=== PATIENT | female | born 1985 | race Caucasian/White ===

== ENCOUNTER 2016-08-12 10:36 | Day surgery (SDC) | payer OTHER ==
--- NOTE | 2016-08-12 08:29 | HP ---
DATE OF SURGERY: 08/12/2016 HISTORY OF PRESENT ILLNESS: The patient is a 20 year-old has been working out the last two months and developed a bulge in mid epigastrium. There does not appear to be any pain prior to her supraumbilical incision from repair of her old hernia site that was done at the time of cholecystectomy. She had CT scan of the abdomen and pelvis at that time had shown just a seroma in that area but no hernia. PAST MEDICAL HISTORY: He denies any chronic illnesses. PAST SURGICAL HISTORY: Tubal ligation, ablation, hernia repair with a small piece of mesh as well as cholecystectomy in the past. MEDICATIONS: vitamins and Prilosec in the past. ALLERGIES: NKDA. FAMILY HISTORY: Negative. SOCIAL HISTORY: No smoking or alcohol abuse. REVIEW OF SYSTEMS: Twelve systems reviewed per admission assessment. No chest pain or palpitations other systems negative or noncontributory as above and per preadmission questionnaire. PHYSICAL EXAMINATION: GENERAL: No acute distress. HEENT: Sclerae nonicteric. NECK: No JVD. CHEST: Equal excursion, nonlabored breathing. CVS: Regular rate and rhythm. ABDOMEN: Soft. No peritoneal signs. Epigastric nodule that seems to be consistent with epigastric incarcerated ventral hernia not at her prior incision site but in between her epigastric incision for cholecystectomy as well as the umbilical area incision for other hernia repair. EXTREMITIES: No significant edema. NEURO: Alert, oriented, moving extremities symmetrically. No gross motor deficits noted. IMPRESSION: Question of epigastric incarcerated ventral hernia site increasingly symptomatic. I feel she will be benefit from repair, to rule out any other etiology of her prior hernia repair done by the umbilical area as she had a prior ventral hernia repair, I feel she would benefit from laparoscopy for further evaluation of this area and possible aspiration of small seroma in this area as well as probable open repair of epigastric ventral hernia with mesh depending operative findings. Risks and benefits explained in detail including but not limited to bleeding or infection, risk of trocar injury or hernia. Small risk of bowel, bladder or blood vessel injury, small risk of adhesions or scar formation or obstruction, risk of mesh fracture or failure possibly creating issues of bowel possibly requiring open procedure, overall risk of hernia recurrence, general risk of anesthesia, deep venous thrombosis, pulmonary embolism, pneumonia, perioperative aches, bloating, constipation, and/or loose stools possibly chronic in nature. She understands and agrees to the planned procedure and will proceed with laparoscopic assisted probable open repair of incarcerated epigastric ventral hernia with mesh as an outpatient.
[~2016-08-12 10:36] MED LIST: BRIDION 200MG/2ML IV ONE; DILAUDID 2 MG INJECTION IV ONE; DIPRIVAN 200 MG/20 ML IV ONE; Decadron 4 MG INJ IV ONE; Lactated Ringers 1,000 ML IV ONE; Quelicin Fliptop 200 MG/10 ML IJ ONE; ROBINUL IV ONE; SUBLIMAZE 100 MCG/2 ML IV ONE; Sensorcaine 0.25% 10 ML ONE; TORAdol 30 mg Injection IJ ONE; Zemuron 100 MG/10 ML IJ ONE; Zofran 4 MG/2 ML VIAL IV ONE
[2016-08-12] MEDS ORDERED: CEFAZOLIN 2 GM-D5W BAG** 50 ML IV ONE ×2 (10:53→10:54)
[2016-08-12] MEDS ORDERED: Lactated Ringers 1,000 ML IV ONE ×2 (10:54→14:35)
[2016-08-12] MEDS ORDERED: Lactated Ringers 1,000 ML IV SCH (11:00)
[2016-08-12] MEDS ORDERED: DILAUDID 2 MG INJECTION ONE (14:35)
[2016-08-12 16:06] VITALS: BP 103/58; PULSE 72; O2SAT 94
--- NOTE | 2016-08-12 16:28 | OP ---
SURGERY DATE: 08/12/16 SURGERY TIME: 1305 PREOPERATIVE DIAGNOSIS: 1. INCARCERATED EPIGASTRIC VENTRAL SEPARATE SITE FROM PRIOR OLD UMBILICAL AREA VENTRAL HERNIA REPAIR. POSTOPERATIVE DIAGNOSIS: 1. INCARCERATED EPIGASTRIC VENTRAL SEPARATE SITE FROM PRIOR OLD UMBILICAL AREA VENTRAL HERNIA REPAIR WITH SECOND MORE SUPERIOR INCARCERATED EPIGASTRIC VENTRAL HERNIA (2 SEPARATE INCARCERATED EPIGASTRIC VENTRAL HERNIAS SEPARATE FROM PREVIOUS LOWER UMBILICAL AREA VENTRAL HERNIA REPAIR WITH MESH). PROCEDURE: 1. Open repair of incarcerated epigastric ventral hernias X 2 with mesh repaired in block as one hernia with laparoscopic assistance. SURGEON: Dr. Alexis Samuels. JOURNEYMAN LINEMAN: Geovanny Grove MS-III. ANESTHESIA: General. ESTIMATED BLOOD LOSS: Minimal. INDICATIONS: As noted above. Risks and benefits explained in detail, but not limited to. Consent was obtained. DESCRIPTION OF PROCEDURE AND FINDINGS: The patient was taken to the OR. General anesthesia was induced. Abdomen was prepped and draped in the usual sterile fashion. After official time-out, no disagreement in planned procedure. Transverse incision made infraumbilical. A small little stab wound. Fascia was pulled upward with the towel clips. Veress needle inserted. However, there was not an easy drop test in this area. It was felt that some scar tissue from the prior hernia repair. Therefore, it was elected to go more superiorly where the palpable hernia was noted in the epigastrium a few cm above the old hernia repair. Vertical incision as made with the towel clips pulling the fascia upward. Veress needle inserted. Tested with saline. Pneumoperitoneum accomplished from an opening pressure of 0-15. 5 mm bladeless port and camera were inserted in the left mid abdomen without difficulty followed by left lower quadrant 5 mm ports were placed. There was no evidence of any intraabdominal injury secondary to trocar insertion. The patient was evidenced to have an incarcerated hernia superior to the old repair site. The old umbilical area hernia repair site did appear to be fine. No evidence of recurrence. There was just one small edge of the mesh that was just slightly crinkled downward, but it was well peritonealized not causing any adhesions or any issues. Ligature was used to open the preperitoneal space and the falciform up to the level. It was then noted the patient had 2 separate sites of incarcerated epigastric ventral hernias superior to the old repair site. Small Prolene was placed through the old umbilical mesh to place it in a more perfect position, although again, there was no recurrence at this site. At this point, it was felt it would be best to go ahead and dissect down circumferentially around this hernia sac that had some seroma fluid in it tracking back to a smaller hernia in the epigastrium. It was incarcerated with preperitoneal fat and this fluid and hernia sac. This was carefully isolated away from the surrounding tissue and the incarcerated fat was carefully ligated with Vicryl tie and hernia sac passed off. The other area more superior was a little bit larger hernia. This was carefully opened. It was felt would benefit from mesh repair. 4.3 Ventralex was carefully inserted underneath. Straps pulled upward. Secured circumferentially a cm apart around the edges with 0 Prolene. The attenuated tissue over the top was closed with 0 Vicryl. A 0 Vicryl was also used to close the 2nd small hernia that was in between the largest hernia and the old umbilical repair site. This was closed with the edge of the mesh as well as another 0 PDS fixing it in block for these 2 hernias. Good repair was noted inside the abdomen. Again, repair had been accomplished in open fashion. The Sorba[employer] tacker was tacking part of the falciform peritoneum over the top of the mesh isolating it away from the tissue. Pneumoperitoneum decompressed. Good hemostasis noted. Wound was irrigated out. 0.25% Marcaine local injected along each skin incision. Ports removed. Subq closed with 3-0 Vicryl. Skin closed with 4-0 Vicryl. Steri-strips and sterile dressing applied. Patient tolerated the procedure well. There were no immediate complications. Sterile dressing was applied as well as abdominal binder. Patient tolerated the procedure well. Findings discussed with the family out in the waiting area.
== END 2016-08-12 16:20 | disposition home or self-care (01) ==
LOC: SDC 10:36
PROVIDERS: ATTEND Surgery
PROC: 0WUF0JZ Supplement Abdominal Wall with Synthetic Substitute, Open Approach (ICD-10-PCS; principal; 2016-08-12)
DX: K43.7 Other and unspecified ventral hernia with gangrene (principal)
CPT/HCPCS: 00752; 36415; 84703; 88302; C1781; J0330; J0690; J1100; J1170; J1885; J2405; J2704; J3010; L0625

== ENCOUNTER 2017-10-06 08:28 | Day surgery (SDC) | payer OTHER ==
--- NOTE | 2017-10-06 08:10 | HP ---
DATE OF SURGERY: 10/06/2017 HISTORY OF PRESENT ILLNESS: The patient is a 32 year-old who had some abdominal aches and pains, increased reflux. No evidence of abdominal wall hernia recurrence on CT scan. She is in need of upper and lower endoscopy to evaluate for gastritis, ulcer, colitis, inflammatory bowel disease or other etiology regarding abdominal pain. PAST MEDICAL HISTORY: Reflux. PAST SURGICAL HISTORY: Hernia repair in the past. Right ovary removed in the past. Tubal ligation and cholecystectomy in the past. MEDICATIONS: vitamins, probiotic, Prilosec, control pill, MiraLAX. ALLERGIES: NKDA. FAMILY HISTORY: Negative in regards to this problem. SOCIAL HISTORY: No alcohol abuse. REVIEW OF SYSTEMS: Twelve systems reviewed. No chest pain or palpitations other systems negative or noncontributory as above and per preadmission questionnaire. PHYSICAL EXAMINATION: GENERAL: No acute distress. HEENT: Sclerae nonicteric. NECK: No JVD. CHEST: Equal excursion, nonlabored breathing. CVS: Regular rate and rhythm. ABDOMEN: Soft. No peritoneal signs. Vague abdominal tenderness. No palpable hernia recurrence. EXTREMITIES: No significant edema. NEURO: Alert, oriented, moving extremities symmetrically. No gross motor deficits noted. LAB DATA AND TESTS: CT scan did not show any obvious hernia recurrence. IMPRESSION: Abdominal pain increased reflux. 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 She is in need of follow up upper endoscopy and colonoscopy to evaluate for gastritis, esophagitis, inflammatory bowel disease, colitis or other etiology for her aches and pains. Risks and benefits explained in detail including but not limited to bleeding or infection, small risk of bowel injury or perforation possibly requiring open procedure, risk of missed or nondiagnosis or incomplete exam possibly requiring barium enema, other studies or procedures. She understands and agrees to the planned procedure and will proceed with outpatient EGD and colonoscopy for further evaluation.
[~2017-10-06 08:28] MED LIST changes: -BRIDION 200MG/2ML IV ONE; -DILAUDID 2 MG INJECTION IV ONE; -DIPRIVAN 200 MG/20 ML IV ONE; -Decadron 4 MG INJ IV ONE; -Lactated Ringers 1,000 ML IV ONE; +Lactated Ringers 1,000 ML IV SCH; -Quelicin Fliptop 200 MG/10 ML IJ ONE; -ROBINUL IV ONE; -SUBLIMAZE 100 MCG/2 ML IV ONE; -Sensorcaine 0.25% 10 ML ONE; -TORAdol 30 mg Injection IJ ONE; -Zemuron 100 MG/10 ML IJ ONE; -Zofran 4 MG/2 ML VIAL IV ONE
[2017-10-06] MEDS ORDERED: DIPRIVAN 200 MG/20 ML IV ONE (08:29)
[2017-10-06] MEDS ORDERED: Lactated Ringers 1,000 ML IV ONE (08:55)
[2017-10-06 11:52] VITALS: O2SAT 100
[2017-10-06 13:02] VITALS: BP 122/51; PULSE 70
--- NOTE | 2017-10-06 15:01 | OP ---
SURGERY DATE/TIME: 10/06/2017 1026 PREOPERATIVE DIAGNOSES: 1) Abdominal pain unclear etiology. 2) History of reflux. 3) History of Monroe's. Need for follow up upper and lower endoscopy. POSTOPERATIVE DIAGNOSES: 1) Minimal gastritis. 2) Slight small hiatal hernia. 3) Question short segment of Monroe's esophagus. 4) Poor bowel prep limiting colon exam. 5) Small internal and external hemorrhoids. 6) Small raised lesions sigmoid and rectum versus hyperplastic lesion versus early polyps. 7) Ulcer terminal ileum. PROCEDURES: 1) EGD with cold biopsy of small bowel to evaluate for celiac sprue. 2) Cold biopsy of the antrum to evaluate for Helicobacter pylori. 3) Cold biopsy distal esophagus to evaluate for Monroe's esophagus. 4) Colonoscopy terminal ileum. 5) Retrograde ileostomy. 6) Cold biopsy margin of ileal ulcer to evaluate for inflammatory bowel disease. 7) Random cold biopsy of colon to evaluate for microscopic colitis. 8) Hot biopsy and removal of small raised lesion versus hyperplastic lesion versus early polyps sigmoid colon and rectum. SURGEON: Dr. Alexis Samuels. CAPACITY PLANNING MANAGER: Chanel Galvez, Medical Student III. ANESTHESIA: MAC. ESTIMATED BLOOD LOSS: Minimal. INDICATIONS: As noted above. Risks and benefits explained in detail and not limited to and consent obtained. DESCRIPTION OF PROCEDURE AND FINDINGS: The patient is taken to the operating room. MAC anesthesia introduced. After official time out and no disagreement with planned procedure, a bite block positioned. Video gastroscope passed down the esophagus through the patent pylorus to the junction of the second and third portion of the duodenum. Given her symptom complaints of vague aches and pains, cold biopsy taken to evaluate for celiac sprue. Good hemostasis noted. There were no signs of any obvious ulcers. The scope pulled back into the stomach. There was some minimal gastritis given her symptom complaints. It was felt she warranted biopsy for Helicobacter pylori for AXEL-test. On retroflex there are no signs of any ulcers or other mucosal lesions. On retroflex there may have been just a slight hiatal hernia or weakness of the hiatus. The scope is straightened. The gastroesophageal junction about 35 cm. Short segment about 0.5 cm, less than 1 cm seen on pink tissue. Question Monroe's esophagus. Cold biopsies were taken. Unfortunately the staff placed both specimens from the stomach and esophagus in the same container. The scope had already been withdrawn. Otherwise the path is pending to evaluate for Monroe's. The remainder of the esophagus is grossly unremarkable. No signs of any obvious masses or ulcers. The scope is withdrawn. The patient tolerated this part of the procedure well. Attention is then turned to the colonoscopy. Digital rectal exam did not reveal any rectal masses. She did have some small internal and external hemorrhoids. Video colonoscope inserted and passed up through the poorly prepped colon. It had a large amount of liquidy semi-solid stool limiting the exam for small lesions. It is suctioned and irrigated as well as possible but did limit the exam. The scope is able to be passed around transverse colon with positioning on her back and external pressure by a couple of staff members, the scope was able to be passed to the cecum up into the terminal ileum. There was an ulceration noted in the terminal ileum. A cold biopsy is taken with margin to evaluate for inflammatory bowel disease. There did not appear to be any monica cobble-stoning or ulcer in the terminal ileum. Cold biopsy is taken of the margin to evaluate for inflammatory bowel disease otherwise good hemostasis noted. Otherwise the scope was then carefully withdrawn. Again the prep was somewhat poor, liquidy, semi-solid stool throughout the colon on exam suction and irrigating as well as possible. Random cold biopsies taken throughout the colon to evaluate for microscopic colitis. There are no signs of any gross macroscopic colitis. There are no signs of any large polyps or masses throughout the colon. Back to the sigmoid colon very small 2 mm sized raised lesion versus hyperplastic lesion versus hyperplastic polyp removed with hot biopsy forceps with brief bursts of cautery. There was an additional four or five of these small raised lesions in the rectum they were also removed with hot biopsy forceps. There are no signs of any large polyps, masses or obstructing lesions. The scope is withdrawn. The patient tolerated the procedure well. Await biopsy results and also ordered given her change in ileum also ordered serum IBD-assay test for further information and a serum Helicobacter pylori test for gastric biopsy. The patient tolerated the procedure well. There were no immediate complications. Given her symptom complaints await IBD-assay test, serum Helicobacter pylori and biopsy results. There was no family available to discuss the findings with. I will her back in the office next week to go over the results.
[2017-10-09 13:50] LABS: H.Pylori Stool Ag. EIA Negative (Negative); Source H. Pylori Ag. Feces
== END 2017-10-06 12:30 | disposition home or self-care (01) ==
LOC: SDC 08:28
PROVIDERS: ATTEND Surgery
DX: K29.70 Gastritis, unspecified, without bleeding (principal); K44.9 Diaphragmatic hernia without obstruction or gangrene; K22.70 Barrett's esophagus without dysplasia; K64.4 Residual hemorrhoidal skin tags; K64.8 Other hemorrhoids; K63.9 Disease of intestine, unspecified; K63.5 Polyp of colon; K62.1 Rectal polyp; K63.3 Ulcer of intestine
CPT/HCPCS: 36415; 81479; 82397; 83520; 86140; 87338; 88305; 88346; J2704

== ENCOUNTER 2017-12-15 15:28 | Emergency (ER) | payer OTHER ==
[2017-12-15] MEDS ORDERED: Sodium Chloride 0.9% 1000 ML 1,000 ML IV STA (15:56)
--- NOTE | 2017-12-15 16:08 | ERPHSYRPT ---
- History of Present Illness Time Seen by Provider: 12/15/17 15:40 Source: patient, family Exam Limitations: no limitations Patient Subjective Stated Complaint: stalorenzo got up at 0200 this AM and opaassed out. unsure of what happened. has hx of passing out. stanickie has a generalized headache. Triage Nursing Assessment: alert and oriented. states passed out at 0200 today. states hot head. no palpable swelling noted.. YADIRA neuro intact. Able to ambulate to room. generalized headache. Physician History: 32 Y/O WHITE FEMALE PRESENTS TO EMERGENCY ROOM 12 TO 13 HOURS AFTER HAVING A SYNCOPAL EPISODE AT APPROX 0200 THIS AM. PT HAD A SIMILAR EPISODE WHEN SHE WAS YOUNGER. NO DX GIVEN. PT ARRIVES TO ER WITH HER AMBULATING ON HER OWN BUT C/O HEADACHE. NO CP AND NO ABD PAIN. DENIES NEW MEDS. DENIES ALCOHOL OR ILLICIT DRUG USE. DENIES TRAUMA TO HEAD. NO VISUAL CHANGES Witnessed: unwitnessed Prior Episodes: single episode today Timing/Duration: today Precipitating Factors: none Loss of Consciousness: unsure Charcter of event(s): collapsed Allergies/Adverse Reactions: No Known Drug Allergies Allergy (Verified 10/06/17 08:38) Home Medications: Omeprazole 20 mg PO DAILY 08/17/15 [History] Lactobacillus Acidophilus [Acidophilus Lactobacilli] 2 each PO DAILY 09/25/17 [ History] Norethindrone-E.estradiol-Iron [Junel Fe 24 Tablet] 1 each PO DAILY 09/25/17 [ History] Polyethylene Glycol 3350 17 gm [Miralax Powder 17GM PACKET] 17 gm PO DAILY [History] 47/Iron/Folate 1/Dha [Zatean-Pn Dha Capsule] 1 each PO DAILY 09/25/17 [ History] Hx Influenza Vaccination/Date Given: No Hx Pneumococcal Vaccination/Date Given: No - Past Medical History Pertinent Past Medical History: Yes Neurological History: No Pertinent History ENT History: No Pertinent History Cardiac History: No Pertinent History Respiratory History: No Pertinent History Endocrine Medical History: No Pertinent History Musculoskeletal History: No Pertinent History GI Medical History: GERD, Gallbladder Disease, Hernia, Other History: No Pertinent History Psycho-Social History: No Pertinent History Female Reproductive Disorders: No Pertinent History Other Medical History: patient states " barretts" - Past Surgical History Past Surgical History: Yes Neuro Surgical History: No Pertinent History Cardiac: No Pertinent History Respiratory: No Pertinent History Gastrointestinal: Cholecystectomy, Hernia Repair Genitourinary: No Pertinent History Musculoskeletal: No Pertinent History Female Surgical History: Tubal Ligation Other Surgical History: endometrial Ablation,. right ovary removed - Social History Smoking Status: Never smoker How long have you smoked: 11 years Exposure to second hand smoke: No Drug Use: none Patient Lives Alone: No - Female History Hx Now: No - Review of Systems Constitutional: No Symptoms Eyes: No Symptoms, No Eye Pain, No Photophobia, No Vision Changes Ears, Nose, & Throat: No Symptoms, No Ear Pain Respiratory: No Symptoms, No Cough, No Dyspnea, No Dyspnea on Exertion (WIGGINS), No Stridor, No Wheezing Cardiac: No Symptoms, No Chest Pain, No Palpitations Abdominal/Gastrointestinal: No Symptoms, No Abdominal Pain, No Nausea, No Vomiting, No Diarrhea Genitourinary Symptoms: No Symptoms, No Dysuria, No Frequency, No Hematuria Musculoskeletal: No Symptoms Skin: No Symptoms Neurological: Headache Psychological: No Symptoms, No Alcohol Abuse, No Drug Abuse, No Anxiety Endocrine: No Symptoms Hematologic/Lymphatic: No Symptoms Immunological/Allergic: No Symptoms All Other Systems: Reviewed and Negative Physical Exam - Nursing Vital Signs Nursing Vital Signs: Initial Vital Signs Temperature 98.5 F 12/15/17 15:37 Pulse Rate 77 12/15/17 15:37 Respiratory Rate 16 12/15/17 15:37 Blood Pressure 134/85 12/15/17 15:37 O2 Sat by Pulse Oximetry 98 12/15/17 15:37 Pain Scale Pain Intensity 5 - [place] Coma Scale Best Eye Response (Ben): (4) open spontaneously Best Verbal Response ([place]): (5) oriented Best Motor Response (Ben): (6) obeys commands [place] Total: 15 - Physical Exam General Appearance: mild distress, alert, anxiety Ears, Nose, Throat Exam: normal ENT inspection Neck Exam: normal inspection, non-tender, supple, full range of motion, No meningismus Respiratory: normal breath sounds, lungs clear, airway intact, No chest tenderness, No respiratory distress, No rhonchi, No wheezing Cardiovascular: regular rate/rhythm, normal heart sounds, normal peripheral pulses Gastrointestinal: soft, normal bowel sounds, No tenderness, No distention, No guarding, No rebound Pelvic Exam: not done Rectal Exam: not done Back Exam: normal inspection Extremity Exam: normal inspection Mental Status: alert, oriented x 3, cooperative algebra tutor Exam: normal hearing, normal speech, PERRL Coordination/Gait: normal finger to nose, normal gait, normal cerebellar function Motor/Sensory: no motor deficit, no sensory deficit Skin Exam: normal color, warm, dry SpO2 Interpretation: normal SpO2: 98 Oxygen Delivery: Room Air - Course Nursing assessment & vital signs reviewed: Yes EKG Interpreted by Me: RATE (74), Sinus Rhythm, NORMAL AXIS, NORMAL INTERVALS, NORMAL QRS, NORMAL ST-T Ordered Tests: Active Orders 24 hr Category Date Time Status Accucheck STAT Care 12/15/17 15:56 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 12/15/17 15:57 Active EKG-ER Only STAT Care 12/15/17 15:56 Active IV Insertion STAT Care 12/15/17 15:56 Active Pulse Oximetry (ED) STAT Care 12/15/17 15:56 Active HEAD WITHOUT CONTRAST [CT] Stat Exams 12/15/17 15:57 Completed CBC W DIFF Stat Lab 12/15/17 16:40 Completed CMP Stat Lab 12/15/17 16:40 Completed HCG,QUALITATIVE URINE Stat Lab 12/15/17 16:40 Completed PROTIME WITH INR Stat Lab 12/15/17 16:40 Completed UA W/RFX UR CULTURE Stat Lab 12/15/17 16:40 Completed Urine Triage Profile Stat Lab 12/15/17 16:40 Completed Medication Summary Discontinued Medications Generic Name Dose Route Start Last Admin Trade Name Freq PRN Reason Stop Dose Admin Hydrocodone Bitart/Acetaminophen 1 tab 12/15/17 17:45 [place] 10/325 Mg Tablet PO 12/15/17 17:46 STAT ONE Sodium Chloride 1,000 mls @ 999 mls/hr 12/15/17 15:56 12/15/17 16:49 Sodium Chloride 0.9% 1000 Ml IV 12/15/17 16:56 999 mls/hr .Q1H1M STA Administration Sodium Chloride Confirm 12/15/17 16:47 Sodium Chloride 0.9% 1000 Ml Administered 12/15/17 16:48 Dose 1,000 mls @ ud .ROUTE .STK-MED ONE Lab/Rad Data: Laboratory Result Diagrams 12/15/17 16:40 12/15/17 16:40 Laboratory Results 12/15/17 12/15/17 12/15/17 Range/Units 16:40 16:40 16:40 WBC (4.0-10.5) K/mm3 RBC (4.1-5.4) M/mm3 Hgb (12.0-16.0) gm/dl Hct (35-47) % MCV (78-100) fl MCH (26-32) pg MCHC (32-36) g/dl RDW (11.5-14.0) % Plt Count (150-450) K/mm3 MPV (6-9.5) fl Gran % (36.0-66.0) % Eos # (Auto) (0-0.5) Absolute Lymphs (auto) (1.0-4.6) Absolute Monos (auto) (0.0-1.3) Lymphocytes % (24.0-44.0) % Monocytes % (0.0-12.0) % Eosinophils % (0.00-5.0) % Basophils % (0.0-0.4) % Absolute Granulocytes (1.4-6.9) Basophils # (0-0.4) PT (9.95-12.35) SECONDS INR (0.8-3.0) Sodium (137-145) mmol/L Potassium (3.5-5.1) mmol/L Chloride (98-107) mmol/L Carbon Dioxide (22-30) mmol/L Anion Gap (5-15) MEQ/L BUN (7-17) mg/dL Creatinine (0.52-1.04) mg/dL Estimated GFR ML/MIN Glucose (74-106) mg/dL Calcium (8.4-10.2) mg/dL Total Bilirubin (0.2-1.3) mg/dL AST (14-36) U/L ALT (0-35) U/L Alkaline Phosphatase (38-126) U/L Serum Total Protein (6.3-8.2) g/dL Albumin (3.5-5.0) g/dL Ur Collection Type CLEAN CATCH Urine Color YELLOW (YELLOW) Urine Appearance CLEAR (CLEAR) Urine pH 6.0 (5-6) Ur Specific [place] 1.020 (1.005-1.025) Urine Protein NEGATIVE (Negative) Urine Ketones NEGATIVE (NEGATIVE) Urine Blood NEGATIVE (0-5) Fredrick/ul Urine Nitrite NEGATIVE (NEGATIVE) Urine Bilirubin NEGATIVE (NEGATIVE) Urine Urobilinogen NORMAL (0-1) mg/dL Ur Leukocyte Esterase NEGATIVE (NEGATIVE) Urine Culture Reflexed NO (NO) Urine Glucose NEGATIVE (NEGATIVE) mg/dL Urine HCG, Qual NEGATIVE (Negative) Urine Opiates Level NEGATIVE (NEGATIVE) Ur Methadone NEGATIVE (NEGATIVE) Urine Barbiturates NEGATIVE (NEGATIVE) Ur Phencyclidine (PCP) NEGATIVE (NEGATIVE) Urine Amphetamine NEGATIVE (NEGATIVE) U Benzodiazepine Level NEGATIVE (NEGATIVE) Urine Cocaine NEGATIVE (NEGATIVE) Urine Marijuana (THC) NEGATIVE (NEGATIVE) Specimen Received 12/15/17 1557 12/15/17 12/15/17 12/15/17 Range/Units 16:40 16:40 16:40 WBC 12.0 H (4.0-10.5) K/mm3 RBC 4.47 (4.1-5.4) M/mm3 Hgb 14.4 (12.0-16.0) gm/dl Hct 42.1 (35-47) % MCV 94.2 (78-100) fl MCH 32.2 H (26-32) pg MCHC 34.2 (32-36) g/dl RDW 12.7 (11.5-14.0) % Plt Count 259 (150-450) K/mm3 MPV 9.6 H (6-9.5) fl Gran % 81.7 H (36.0-66.0) % Eos # (Auto) 0.02 (0-0.5) Absolute Lymphs (auto) 1.61 (1.0-4.6) Absolute Monos (auto) 0.54 (0.0-1.3) Lymphocytes % 13.4 L (24.0-44.0) % Monocytes % 4.5 (0.0-12.0) % Eosinophils % 0.2 (0.00-5.0) % Basophils % 0.2 (0.0-0.4) % Absolute Granulocytes 9.81 H (1.4-6.9) Basophils # 0.03 (0-0.4) PT 11.6 (9.95-12.35) SECONDS INR 1.00 (0.8-3.0) Sodium 141 (137-145) mmol/L Potassium 3.8 (3.5-5.1) mmol/L Chloride 106 (98-107) mmol/L Carbon Dioxide 26 (22-30) mmol/L Anion Gap 13.3 (5-15) MEQ/L BUN 10 (7-17) mg/dL Creatinine 0.51 L (0.52-1.04) mg/dL Estimated GFR > 60.0 ML/MIN Glucose 98 (74-106) mg/dL Calcium 9.0 (8.4-10.2) mg/dL Total Bilirubin 0.50 (0.2-1.3) mg/dL AST 17 (14-36) U/L ALT 11 (0-35) U/L Alkaline Phosphatase 48 (38-126) U/L Serum Total Protein 7.2 (6.3-8.2) g/dL Albumin 4.2 (3.5-5.0) g/dL Ur Collection Type Urine Color (YELLOW) Urine Appearance (CLEAR) Urine pH (5-6) Ur Specific [place] (1.005-1.025) Urine Protein (Negative) Urine Ketones (NEGATIVE) Urine Blood (0-5) Fredrick/ul Urine Nitrite (NEGATIVE) Urine Bilirubin (NEGATIVE) Urine Urobilinogen (0-1) mg/dL Ur Leukocyte Esterase (NEGATIVE) Urine Culture Reflexed (NO) Urine Glucose (NEGATIVE) mg/dL Urine HCG, Qual (Negative) Urine Opiates Level (NEGATIVE) Ur Methadone (NEGATIVE) Urine Barbiturates (NEGATIVE) Ur Phencyclidine (PCP) (NEGATIVE) Urine Amphetamine (NEGATIVE) U Benzodiazepine Level (NEGATIVE) Urine Cocaine (NEGATIVE) Urine Marijuana (THC) (NEGATIVE) Specimen Received - Progress Progress: pain not gone completely, re-examined Progress Note: 12/15/17 17:47 i re examined pt. she still has a headache. i reviewed all lab, ekg and ct scan results with patient. i will give her a norco pill. Counseled pt/family regarding: lab results, diagnosis, need for follow-up, rad results - Departure Time of Disposition: 17:49 Departure Disposition: Home Clinical Impression: Syncope, Headache Condition: Stable Critical Care Time: No Referrals: MAXINE MA MD [Primary Care Provider] - Additional Instructions: use tylenol and ibuprofen for pain. return to ER if symptoms worsen. follow up with primary doctor tomorrow for further management
--- NOTE | 2017-12-15 16:22 | XRAY ---
Indication: Head injury following syncope last night. Headache. Multiple contiguous axial images obtained through the head without contrast. Comparison: April 03, 2008. Again normal appearing brain parenchyma, ventricles, and bony calvarium. Visualized paranasal sinuses and mastoid air cells are clear. Impression: Stable normal CT head without contrast exam. CTDI 71.08
[2017-12-15] MEDS ORDERED: Sodium Chloride 0.9% 1000 ML 1,000 ML ONE (16:47)
[2017-12-15 16:56] LABS: BASOPHIL % 0.2 % (0.0-0.4); Basophil (Absolute #) 0.03 (0-0.4); Eosinophil % 0.2 % (0.00-5.0); Eosinophil (Absolute #) 0.02 (0-0.5); Granulocyte Absolute (ANC) 9.81 (1.4-6.9); Granulocytes % 81.7 % (36.0-66.0); Hematocrit 42.1 % (35-47); Hemoglobin 14.4 gm/dl (12.0-16.0); Lymphocyte (Absolute #) 1.61 (1.0-4.6); Lymphocytes % 13.4 % (24.0-44.0); Mean Cell Volume 94.2 fl (78-100); Mean Corpuscular Hemoglobin 32.2 pg (26-32); Mean Corpuscular Hgb Concent. 34.2 g/dl (32-36); Mean Platelet Volume 9.6 fl (6-9.5); Monocyte (Absolute #) 0.54 (0.0-1.3); Monocytes % 4.5 % (0.0-12.0); Platelet Count 259 K/mm3 (150-450); Red Blood Count 4.47 M/mm3 (4.1-5.4); Red Cell Distribution Width 12.7 % (11.5-14.0)
[2017-12-15 17:13] LABS: Amphetamine,Urine NEGATIVE (NEGATIVE); Barbiturate,Urine NEGATIVE (NEGATIVE); Benzodiazepine,Urine NEGATIVE (NEGATIVE); Cocaine,Urine NEGATIVE (NEGATIVE); Methadone,Urine NEGATIVE (NEGATIVE); Opiate,Urine NEGATIVE (NEGATIVE); PCP,Urine NEGATIVE (NEGATIVE); THC,Urine NEGATIVE (NEGATIVE)
[2017-12-15 17:14] LABS: Appearance CLEAR (CLEAR)
[2017-12-15 17:15] LABS: Bilirubin NEGATIVE (NEGATIVE); Blood NEGATIVE Ery/ul (0-5); Glucose NEGATIVE (NEGATIVE); Ketones NEGATIVE (NEGATIVE); Leukocyte Esterase NEGATIVE (NEGATIVE); Nitrite NEGATIVE (NEGATIVE); Protein,Urine Dip NEGATIVE (Negative); Urobilinogen NORMAL mg/dL (0-1)
[2017-12-15 17:22] LABS: ALBUMIN 4.2 g/dL (3.5-5.0); ALKALINE PHOSPHATASE 48 U/L (38-126); ANION GAP 13.3 MEQ/L (5-15); BLOOD UREA NITROGEN 10 mg/dL (7-17); CHLORIDE 106 mmol/L (98-107); Carbon Dioxide 26 mmol/L (22-30); Creatinine 1 0.51 mg/dL (0.52-1.04); Glucose 98 mg/dL (74-106); Potassium 3.8 mmol/L (3.5-5.1); SGOT/AST 17 U/L (14-36); SGPT/ALT 11 U/L (0-35); SODIUM 141 mmol/L (137-145); Total Protein 7.2 g/dL (6.3-8.2)
[2017-12-15] MEDS ORDERED: Norco 10/325 MG Tablet PO ONE (17:45)
[2017-12-15] MEDS ORDERED: NORCO 5/325 MG ONE (17:49)
[2017-12-15 17:51] VITALS: O2SAT 98
[2017-12-15] MEDS ORDERED: NORCO 5/325 MG PO ONE (17:52)
[2017-12-15 18:23] VITALS: BP 122/73; PULSE 73
== END 2017-12-15 18:45 | disposition home or self-care (01) ==
LOC: ED 15:28
DX: R55 Syncope and collapse (principal); R51 Headache; Z79.899 Other long term (current) drug therapy
CPT/HCPCS: 36000; 36415; 70450; 80053; 80307; 81002; 82962; 84703; 85025; 85610; 93005; 93041; 96360; 99284; A9270-GY

== ENCOUNTER 2020-04-14 15:18 | Emergency (ER) | payer OTHER ==
[2020-04-14 15:35] VITALS: O2SAT 100
[2020-04-14] MEDS ORDERED: XYLOCAINE 1% HCL 20 ML MDV IJ ONE (16:01)
[2020-04-14] MEDS ORDERED: BACTRIM DS TABLET PO STA (16:02)
--- NOTE | 2020-04-14 16:07 | ERPHSYRPT ---
- History of Present Illness Time Seen by Provider: 04/14/20 15:30 Source: patient Exam Limitations: no limitations Patient Subjective Stated Complaint: cyst in L armpit Triage Nursing Assessment: . Physician History: This is a 34-year-old white female who has had a recurrent left axillary abscess. This 1 has been present intermittently for the last several weeks. There was some drainage yesterday and increased pain and swelling today. Patient denies fever. Timing/Duration: week(s) (Several), intermittent, worse Location: axillary (L) Possible Causes: no cause identified Associated Symptoms: swelling/mass/lumps (Left axilla) Allergies/Adverse Reactions: No Known Drug Allergies Allergy (Verified 04/14/20 15:35) Home Medications: Levothyroxine Sodium 25 Mcg [Synthroid 25 Mcg] 25 mcg PO DAILY 04/14/20 [History] Omeprazole 40 mg PO DAILY 04/14/20 [History] Polyethylene Glycol 3350 [Miralax] 17 gm PO DAILY 04/14/20 [History] Hx Tetanus, Diphtheria Vaccination/Date Given: No Hx Influenza Vaccination/Date Given: No Hx Pneumococcal Vaccination/Date Given: No Travel Risk - International Travel Have you traveled outside of the country in past 3 weeks: No - Coronavirus Screening Are you exhibiting any of the following symptoms?: No Close contact with a COVID-19 positive Pt in past 14-21 Days: No - Review of Systems Constitutional: No Symptoms Eyes: No Symptoms Ears, Nose, & Throat: No Symptoms Respiratory: No Symptoms Cardiac: No Symptoms Abdominal/Gastrointestinal: No Symptoms Genitourinary Symptoms: No Symptoms Musculoskeletal: No Symptoms Skin: Other (Left axillary abscess) Neurological: No Symptoms Psychological: No Symptoms Endocrine: No Symptoms Hematologic/Lymphatic: No Symptoms Immunological/Allergic: No Symptoms All Other Systems: Reviewed and Negative - Past Medical History Pertinent Past Medical History: Yes Neurological History: No Pertinent History ENT History: No Pertinent History Cardiac History: No Pertinent History Respiratory History: No Pertinent History Endocrine Medical History: Hypothyroidism Musculoskeletal History: No Pertinent History GI Medical History: GERD, Gallbladder Disease, Hernia, Other History: No Pertinent History Psycho-Social History: No Pertinent History Female Reproductive Disorders: No Pertinent History Other Medical History: patient states " barretts" - Past Surgical History Past Surgical History: Yes Neuro Surgical History: No Pertinent History Cardiac: No Pertinent History Respiratory: No Pertinent History Gastrointestinal: Cholecystectomy, Hernia Repair, Other Genitourinary: No Pertinent History Musculoskeletal: No Pertinent History Female Surgical History: Tubal Ligation Other Surgical History: endometrial Ablation,. right ovary removed - Social History Smoking Status: Never smoker How long have you smoked: 11 years Exposure to second hand smoke: No Drug Use: none Patient Lives Alone: No - Female History Hx Now: No (tubal) - Nursing Vital Signs Nursing Vital Signs: Initial Vital Signs Temperature 98.3 F 04/14/20 15:28 Pulse Rate 75 04/14/20 15:28 Respiratory Rate 18 04/14/20 15:28 Blood Pressure 139/70 04/14/20 15:28 O2 Sat by Pulse Oximetry 100 04/14/20 15:28 Pain Scale Pain Intensity 10 - Physical Exam General Appearance: no apparent distress, alert, anxiety Eye Exam: PERRL/EOMI, eyes nml inspection Ears, Nose, Throat Exam: normal ENT inspection, moist mucous membranes Neck Exam: normal inspection, non-tender, supple, full range of motion Respiratory Exam: No chest tenderness, No respiratory distress, No airway intact Gastrointestinal/Abdomen Exam: No tenderness Pelvic Exam: not done Rectal Exam: not done Back Exam: normal inspection, normal range of motion, No CVA tenderness, No vertebral tenderness Extremity Exam: normal inspection, normal range of motion, pelvis stable Neurologic Exam: alert, oriented x 3, cooperative, director strategic account management II-XII nml as tested, normal mood/affect, nml cerebellar function, nml station & gait, sensation nml Skin Exam: other (Abscess left axilla 2.5 cm x 1 cm width. Small amount of pus expressible) Lymphatic Exam: No adenopathy SpO2 Interpretation: normal SpO2: 100 O2 Delivery: Room Air Procedures - Incision and Drainage Timeout: Performed Anesthesia: 1% Lidocaine cc's of anesthesia: 2 Blade Size: 15 I & D Procedure: betadine prep, culture obtained, irrigated with normal saline Results: small amount pus Progress: Area was prepped with Betadine solution. Skin was anesthetized with 1% lidocaine plain (2 mL). Elliptical incision was made around this abscess site. Small amount of pus was present and a culture was obtained. The area was clean dried bandage was placed overlying the site. There were no complications the patient told the procedure well - Course Nursing assessment & vital signs reviewed: Yes - Progress Progress: improved, pain not gone completely, re-examined Counseled pt/family regarding: diagnosis, need for follow-up - Departure Departure Disposition: Home Clinical Impression: Abscess of left axilla Condition: Stable Critical Care Time: No Referrals: MAXINE MA MD [Primary Care Provider] - Additional Instructions: Shower and clean site 2 times a day with soap and warm water. Blot dry use a hairdryer and cover the site with a bandage. Do not use lotions ointments or creams. Take your medication as prescribed. Follow-up with your primary care doctor for referral to the general surgeon for further management. Prescriptions: Hydrocodone/APAP 5/325 [[place] 5/325 mg] 1 each PO Q8H PRN PRN #8 tablet MDD 3 PRN Reason: Pain Smz/Tmp Ds Tablet [Bactrim Ds Tablet] 1 udtab PO BID #14 tablet
[2020-04-14] MEDS ORDERED: XYLOCAINE 1% HCL 20 ML MDV ONE (16:08)
[2020-04-14] MEDS ORDERED: BACTRIM DS TABLET PO ONE (16:08)
[2020-04-14 16:13] VITALS: BP 120/80; PULSE 80
== END 2020-04-14 16:18 | disposition home or self-care (01) ==
LOC: ED 15:18
DX: L02.412 Cutaneous abscess of left axilla (principal)
CPT/HCPCS: 10060; 87070; 87077; 87186; 96372; 99284; A9270-GY